=== PATIENT | female | born 1945 | race African-American/Black ===

== ENCOUNTER 2019-03-18 05:16 | Day surgery (SDC) | payer OTHER, BC ==
[2019-03-17 12:48] VITALS: BMI 26.1
[2019-03-18] MEDS ORDERED: LIDOCAINE HCL 1%, 10 MG/ML (20ML VIAL) ONE (13:01)
[2019-03-18] MEDS ORDERED: BUPIVACAINE HCL/PF 0.5% (5MG/ML) 10 ML VIAL ONE (13:01)
[2019-03-18] MEDS ORDERED: PROPOFOL 20 ML ONE ×2 (14:25)
[2019-03-18] MEDS ORDERED: MIDAZOLAM HCL 2 MG/2 ML SINGLE DOSE VIAL ONE (14:25)
[2019-03-18] MEDS ORDERED: ceFAZolin SODIUM 1 GM VIAL IVPB ONE (14:43)
[2019-03-18] MEDS ORDERED: BUPIVACAINE HCL/PF 0.5% (5MG/ML) 10 ML VIAL IJ ONE (14:57)
[2019-03-18] MEDS ORDERED: LIDOCAINE HCL 1%, 10 MG/ML (20ML VIAL) NR ONE (14:57)
--- NOTE | 2019-03-18 15:32 | OP ---
Operative Note - Note: Operative Date: 03/18/19 Pre-Operative Diagnosis: right CTS Operation: right CTR, tenosynovectomy Post-Operative Diagnosis: Same as Pre-op Surgeon: Juan Vera Anesthesiologist/DASHBOARD DEVELOPER: Joni Rabago Anesthesia: Local, MAC Specimens Removed: tenosynovium Estimated Blood Loss (mls): 0 Drains, Volume Out (mls): 0 Blood Volume Replaced (mls): 0 Fluid Volume Replaced (mls): 500 Operative Report Dictated: Yes
--- NOTE | 2019-03-18 15:35 | HP ---
Satellite [facility] - Chief Complaint Chief Complaint: right hand pain, numbness, weakness History of Present Illness: right CTS History Source: Patient Limitations to Obtaining History: No Limitations - Past Medical History Allergies/Adverse Reactions: Allergies Allergy/AdvReac Type Severity Reaction Status Date / Time metoclopramide [From Reglan] Allergy "effected Verified 03/17/19 12:49 my breathing, sweating" ofloxacin [From Floxin] Allergy "rash" Verified 03/17/19 12:49 sea food Allergy "rash, SOB" Uncoded 03/17/19 12:49 - Current Medications Current Medications: Home Medications Medication Instructions Recorded Acetaminophen [Tylenol -] 500 mg PO PRN PRN 03/17/19 Amlodipine Besylate/Benazepril 1 each PO DAILY 03/17/19 [Lotrel 5-20 mg Capsule] Black Cohosh 40 mg PO DAILY 03/17/19 Calcium Carbonate [Calcium] 500 mg PO DAILY 03/17/19 Celecoxib [Celebrex] 200 mg PO PRN PRN 03/17/19 Furosemide 40 mg PO DAILY 03/17/19 Latanoprost/Pf [Latanoprost 0.005% 7.5 ml OU DAILY 03/17/19 Eye Drop] Lipase/Protease/Amylase [Zenpep Dr 1 each PO AC 03/17/19 25,000 Unit Capsule] Pantoprazole Sodium [Protonix -] 20 mg PO DAILY 03/17/19 Potassium 99 mg PO DAILY 03/17/19 Timolol 0.5% [Timoptic 0.5%] 1 drop OU DAILY 03/17/19 Hydrocodone/Acetaminophen 1 - 2 tab PO TID PRN #20 tablet 03/18/19 [Hydrocodone-Acetamin 5-325 mg] MDD 6 Satellite Physical Exam - Physical Examination Vital Signs: Vital Signs Period Temp Pulse Resp BP Sys/Chang Pulse Ox Last 24 Hr 98.5 F-98.5 F 70-70 18-18 152-152/77-77 100 General Appearance: Well Nourished ENT: Clear Lung: Clear to auscultation Heart: Regular rate & rhythm Breasts: Soft Abdomen: Soft Extremities: No edema Satellite Impression/Plan - Impression/Plan Impression: right CTS, tenosynevectomy Operative Procedure: right CTR, tenosynovectomy Date to be Performed: 03/18/19
[2019-03-18] MEDS ORDERED: oxyCODONE HCL 5 MG TABLET PO PRN ×2 (16:00)
[2019-03-18] MEDS ORDERED: ONDANSETRON 4 MG/2 ML VIAL IVPUSH PRN (16:00)
[2019-03-18] MEDS ORDERED: LACTATED RINGERS SOLUTION 1,000 ML IV SCH (16:00)
[2019-03-18 16:52] VITALS: BP 148/76; PULSE 60; TEMP 98
--- NOTE | 2019-03-18 18:52 | SPEC ---
DATE OF OPERATION: 03/18/2019 PREOPERATIVE DIAGNOSIS: Right carpal tunnel syndrome, tenosynovitis. POSTOPERATIVE DIAGNOSIS: Right carpal tunnel syndrome, tenosynovitis. PROCEDURE: Right carpal tunnel release and tenosynovectomy. SURGEON: Juan Vera MD ASSISTANTS: None. REFINERY OPERATOR ALKYLATION: Joni Rabago CRNA DRAINS: None. COMPLICATIONS: None. BLOOD LOSS: None. BLOOD GIVEN: None. FLUID REPLACEMENT: 500 mL Plasmalyte. SPECIMEN: Tenosynovium, right wrist. INDICATIONS: This patient is a 73-year-old female with a preoperative diagnosis of right carpal tunnel syndrome and tenosynovitis. After understanding the potential risks, complications, alternatives, benefits of surgical versus nonsurgical treatment, the patient elected to undergo this procedure. The patient had 2 g of IV Ancef. DESCRIPTION OF PROCEDURE: The patient was brought to the operating room, peripheral IV placed and intravenous sedation was given. One gram of intravenous Ancef was given. MAC anesthesia was induced. A tourniquet was applied to the right upper arm and the right upper extremity was prepped and draped in sterile fashion. The entire case was done under 3.8 loupe magnification. A marking pen was utilized to luis out a longitudinal incision in an already existing skin crease. Twenty mL of 0.5% Marcaine mixed with 1% Lidocaine was injected in and around the surgical incision. The right upper extremity was elevated, exsanguinated with an Esmarch bandage and the tourniquet inflated to 250 mmHg. A No. 15 scalpel blade was utilized to cut down through the skin. Subcutaneous hemostasis was achieved with the bipolar cautery. Dissection was done through the superficial palmar fascia. Self-retaining retractors were placed into the wound. Under direct visualization, the transverse carpal ligament was transected with a No. 15 scalpel blade, exposing the median nerve and the contents of the carpal tunnel. The distal and proximal extents of the release were completed with a Littler scissor and checked with irrigation and my small finger. They were seen to be complete. Limited dissection was done on the radial side of the median nerve and more extensive dissection was done on the ulnar side of the median nerve. The patients nerve was seen to be quite compressed by epineurium and therefore a limited epineurotomy was performed. A Ragnell retractor was used to gently retract the median nerve in a radial direction. The patient had a lot of tenosynovitis and therefore a tenosynovectomy was performed off all 9 flexor tendons. This was passed off the field as tenosynovium, right wrist. The floor of the carpal tunnel was checked. There were no abnormal masses or ganglion cysts. The area was copiously irrigated and washed out and closure begun. Undyed 4-0 Vicryl was used to close the deep dermal layer. Final skin reapproximation was done with horizontal mattress 4-0 nylon sutures. The area was then washed and dried, covered with Xeroform, 4x4s, fluffs between the fingers, Webril and a 4-inch plaster roll was utilized to make a volar splint, which was then wrapped with Leonel and Coban. The tourniquet was taken down after a total tourniquet time of 18 minutes. There were no complications during the case. The patient tolerated the procedure well and was brought to the ambulatory recovery room in stable condition. Loree [id number]
--- NOTE | 2019-03-21 09:58 | PATH ---
Surgical Pathology Report Patient Name: KELECHI MORILLO [facility]. Rec. #: [id number] /Age/Gender: 1945 (Age: 73) / F Account: [id number] Location: [facility] SURGICAL Taken: 03/18/2019 Received: 03/19/2019 Reported: 03/21/2019 Physicians: Juan Vera M.D. Specimen(s) Received TENOSYNOVIUM Clinical History Right carpal tunnel syndrome Final Diagnosis SOFT TISSUE, RIGHT WRIST, CARPAL TUNNEL RELEASE: TENOSYNOVIUM. Electronically Signed Wilbert Chou M.D. Gross Description Received in formalin labeled "tenosynovium," is a 1.8 x 1.6 x 0.3 cm aggregate of menchaca-yellow portions of soft tissue, consistent with tenosynovium. The specimen is submitted in toto in one cassette. /03/19/201903/19/2019
== END 2019-03-18 16:50 | disposition home or self-care (01) ==
LOC: JASU-SURG 05:16
PROVIDERS: ATTEND Orthopaedic Surgery
PROC: 01N50ZZ Release Median Nerve, Open Approach (ICD-10-PCS; principal; 2019-03-18 14:30)
DX: G56.01 Carpal tunnel syndrome, right upper limb (principal)
CPT/HCPCS: 88304-TC

== ENCOUNTER 2021-07-06 04:24 | Day surgery (SDC) | payer OTHER, BC ==
[2021-07-05 15:01] VITALS: BMI 28.8
[2021-07-06] MEDS ORDERED: LACTATED RINGERS SOLUTION 1,000 ML IV SCH (09:00)
[2021-07-06] MEDS ORDERED: LIDOCAINE HCL 1%, 10 MG/ML (20ML VIAL) ONE (09:00)
[2021-07-06] MEDS ORDERED: BUPIVACAINE HCL/PF 0.5% (5MG/ML) 10 ML VIAL ONE (09:00)
[2021-07-06] MEDS ORDERED: PROPOFOL 20 ML ONE (09:06)
[2021-07-06] MEDS ORDERED: MIDAZOLAM HCL 2 MG/2 ML SINGLE DOSE VIAL ONE (09:07)
[2021-07-06] MEDS ORDERED: DEXMEDETOMIDINE HCL 200 MCG/2 ML IVPB ONE (09:09)
[2021-07-06] MEDS ORDERED: ceFAZolin 2 GRAM PREMIX BAG IVPB ONE (09:27)
[2021-07-06] MEDS ORDERED: LIDOCAINE HCL 1%, 10 MG/ML (20ML VIAL) INF ONE (09:36)
[2021-07-06] MEDS ORDERED: BUPIVACAINE HCL/PF 0.5% (5 MG/ML) 30 ML VIAL IJ ONE (09:42)
[2021-07-06 12:34] VITALS: BP 121/58; PULSE 59; TEMP 97.6
== END 2021-07-06 12:20 | disposition home or self-care (01) ==
LOC: JASU-SURG 04:24
PROVIDERS: ATTEND Orthopaedic Surgery
PROC: 0LB60ZZ Excision of Left Lower Arm and Wrist Tendon, Open Approach (ICD-10-PCS; 2021-07-06)
PROC: 0LN70ZZ Release Right Hand Tendon, Open Approach (ICD-10-PCS; principal; 2021-07-06 09:00)
PROC: 01N50ZZ Release Median Nerve, Open Approach (ICD-10-PCS; 2021-07-06 09:00)
DX: G56.02 Carpal tunnel syndrome, left upper limb (principal); M65.311 Trigger thumb, right thumb

== ENCOUNTER 2023-09-17 04:28 | Day surgery (SDC) | payer OTHER, BC ==
[2023-09-13 14:16] VITALS: BMI 26.9
[2023-09-17] MEDS ORDERED: FENTANYL CITRATE/PF 50 MCG/ML VIAL ONE ×2 (09:30→12:14)
[2023-09-17] MEDS ORDERED: PROPOFOL 20 ML ONE (09:31)
[2023-09-17] MEDS ORDERED: MIDAZOLAM HCL 2 MG/2 ML SINGLE DOSE VIAL ONE (09:31)
[2023-09-17] MEDS ORDERED: BUPIVACAINE HCL/PF 0.5% (5MG/ML) 10 ML VIAL ONE (10:19)
[2023-09-17] MEDS ORDERED: BUPIVACAINE HCL/PF 0.5% (5MG/ML) 10 ML VIAL IJ ONE ×2 (10:27→10:55)
[2023-09-17] MEDS ORDERED: ceFAZolin SODIUM 1 GM VIAL IVPB ONE (10:46)
[2023-09-17] MEDS ORDERED: ePHEDrine SULFATE 50 MG/1 ML AMPULE ONE (10:56)
[2023-09-17] MEDS ORDERED: DEXAMETHASONE SOD PHOSPHATE 4 MG/1 ML VIAL ONE (10:56)
[2023-09-17] MEDS ORDERED: KETOROLAC TROMETHAMINE 30 MG/1 ML VIAL ONE (10:56)
[2023-09-17] MEDS ORDERED: ONDANSETRON 4 MG/2 ML VIAL ONE ×2 (10:56→14:07)
[2023-09-17] MEDS ORDERED: ceFAZolin SODIUM 1 GM VIAL ONE (10:56)
[2023-09-17] MEDS ORDERED: oxyCODONE HCL 5 MG TABLET PO PRN (11:04)
[2023-09-17] MEDS ORDERED: ONDANSETRON 4 MG/2 ML VIAL IVPUSH PRN (11:04)
[2023-09-17] MEDS ORDERED: LACTATED RINGERS SOLUTION 1,000 ML IV SCH (11:15)
[2023-09-17] MEDS ORDERED: ONDANSETRON 4 MG/2 ML VIAL IVPUSH ONE (14:15)
[2023-09-17 15:33] VITALS: BP 117/51; PULSE 60; RESP 18; TEMP 97.3
== END 2023-09-17 15:56 | disposition home or self-care (01) ==
LOC: JASU-SURG 04:28
PROVIDERS: ATTEND Orthopaedic Surgery
PROC: 0SBC4ZZ Excision of Right Knee Joint, Percutaneous Endoscopic Approach (ICD-10-PCS; principal; 2023-09-17 09:30)
DX: M23.251 Derangement of posterior horn of lateral meniscus due to old tear or injury, right knee (principal); M17.11 Unilateral primary osteoarthritis, right knee; M65.9 Synovitis and tenosynovitis, unspecified; M23.8X1 Other internal derangements of right knee
CPT/HCPCS: 94760

== ENCOUNTER 2024-01-10 19:50 | Emergency (ER) | payer OTHER, BC ==
[2024-01-10 20:07] VITALS: RESP 18; TEMP 98.9; BMI 26.7
[2024-01-10] MEDS ORDERED: LIDOCAINE 4% PATCH TP ONE (20:44)
[2024-01-10] MEDS ORDERED: ACETAMINOPHEN 500 MG TABLET (FP) ONE (20:45)
[2024-01-10] MEDS ORDERED: IBUPROFEN 400 MG TABLET (FP) PO ONE (20:45)
[2024-01-10] MEDS: ACETAMINOPHEN 500 MG TABLET (FP) PO ONE (20:48)
[2024-01-10] MEDS: LIDOCAINE 5% TOPICAL PATCH TP ONE (20:48)
[2024-01-10] MEDS: IBUPROFEN 400 MG TABLET (FP) PO ONE (20:48)
[2024-01-10] MEDS: LIDOCAINE PATCH REMOVAL MC SCH (21:36)
[2024-01-10] MEDS ORDERED: METHOCARBAMOL 500 MG TABLET ONE (22:05)
[2024-01-10] MEDS: METHOCARBAMOL 500 MG TABLET PO SCH (22:07)
[2024-01-10 22:25] VITALS: BP 128/76; PULSE 72
== END 2024-01-11 00:25 | disposition home or self-care (01) ==
LOC: JERFT 19:50 → JER 19:50
DX: M54.2 Cervicalgia (principal); M79.661 Pain in right lower leg; M79.662 Pain in left lower leg; M54.50 Low back pain, unspecified; V43.52XA Car driver injured in collision with other type car in traffic accident, initial encounter
CPT/HCPCS: 70450-TC; 71046-TC-FY; 72125-TC; 72131-TC; 73562-TC-RT-FY; 73590-TC-RT-FY; 99284-25